=== PATIENT | female | born 1955 | race African-American/Black ===

== ENCOUNTER 2017-03-20 05:09 | Emergency (ER) | payer MEDICARE, MEDICAID ==
[~2017-03-20] VITALS: Ht 154.9 cm; Wt 60.0 kg
[2017-03-20 05:12] VITALS: BP 120/71; PULSE 100; RESP 16; O2SAT 95
[2017-03-20] MEDS ORDERED: VALP250C PO (05:21)
--- NOTE | 2017-03-20 06:10 | PD ---
HPI . Esophageal foreign body sensation Chief Complaint: Foreign Body Time Seen by Provider: 05:39 Travel History International Travel<30 days: No Contact w/Intl Traveler<30days: No Traveled to known affect area: No History of Present Illness HPI This is a 61-year-old apparently mentally handicapped patient who is brought in by her mother with the chief complaint of a foreign body sensation in her throat. The mother reports that the patient has been complaining with this for the last 2-3 days. Mother reports that she is not eating or drinking very well. The mother reports that the patient has started screaming during the wee hours of the morning complaining with the foreign body sensation in her throat. The patient was subsequently brought here for further evaluation and treatment. The patient and her mother are both extremely poor historians. Unfortunately, the patient has never been seen here before so old records are not helpful. [facility] Past Medical History Developmental Delay: Yes Seizures: Yes Past Surgical History Other Surgery: Yes (TRACH, HERNIA X 5) Social History Alcohol Use: No Tobacco Use: No Substance Use: No Allergies-Medications (Allergen,Severity, Reaction): Coded Allergies: Sulfa (Sulfonamide Antibiotics) (Verified Allergy, Unknown, 03/20/17) Reported Meds & Prescriptions Reported Meds & Active Scripts Active Reported Valproic Acid 250 Mg Cap 250 Mg PO HS Review of Systems Except as stated in HPI: all other systems reviewed are Neg General / Constitutional: No: Fever, Chills HENT: Positive: Sore Throat Gastrointestinal: Positive: Loss of Appetite, No: Nausea, Vomiting, Diarrhea, Abdominal Pain Physical Exam Narrative GENERAL: This is a bald 61-year-old woman who is handling her own secretions and he does not appear to be in any acute distress. SKIN: Warm and dry. HEAD: Atraumatic. Normocephalic. EYES: Pupils equal and round. ENT: No nasal bleeding or discharge. Mucous membranes pink and moist. Macroglossia. No visible foreign body. NECK: Trachea midline. No palpable foreign body. She has a tracheostomy scar. CARDIOVASCULAR: Regular rate and rhythm. Heart sounds normal. RESPIRATORY: No accessory muscle use. Lungs are clear with good air movement throughout. GASTROINTESTINAL: Abdomen soft, non-tender, nondistended. MUSCULOSKELETAL: No obvious deformities. No edema. NEUROLOGICAL: Awake and alert. No obvious cranial nerve deficits. Motor grossly within normal limits. PSYCHIATRIC: Unable to assess. Data Data Last Documented VS Vital Signs Date Time Temp Pulse Resp B/P Pulse Ox O2 Delivery O2 Flow Rate FiO2 03/20/17 05:12 100 16 120/71 95 Room Air Orders Complete Blood Count With Diff (03/20/17 05:39) Basic Metabolic Panel (Bmp) (03/20/17 05:39) Urinalysis - C+S If Indicated (03/20/17 05:39) Soft Tissue Neck (03/20/17 ) Labs Laboratory Tests Test 03/20/17 03/20/17 06:30 07:55 White Blood Count 4.3 TH/MM3 Red Blood Count 3.53 MIL/MM3 Hemoglobin 11.1 GM/DL Hematocrit 33.2 % Mean Corpuscular Volume 94.1 FL Mean Corpuscular Hemoglobin 31.3 PG Mean Corpuscular Hemoglobin 33.3 % Concent Red Cell Distribution Width 14.5 % Platelet Count 271 TH/MM3 Mean Platelet Volume 7.3 FL Neutrophils (%) (Auto) 34.3 % Lymphocytes (%) (Auto) 47.3 % Monocytes (%) (Auto) 15.3 % Eosinophils (%) (Auto) 2.3 % Basophils (%) (Auto) 0.8 % Neutrophils # (Auto) 1.5 TH/MM3 Lymphocytes # (Auto) 2.0 TH/MM3 Monocytes # (Auto) 0.7 TH/MM3 Eosinophils # (Auto) 0.1 TH/MM3 Basophils # (Auto) 0.0 TH/MM3 CBC Comment DIFF FINAL Differential Comment Sodium Level 140 MEQ/L Potassium Level 4.4 MEQ/L Chloride Level 105 MEQ/L Carbon Dioxide Level 29.5 MEQ/L Anion Gap 6 MEQ/L Blood Urea Nitrogen 14 MG/DL Creatinine 1.01 MG/DL Estimat Glomerular Filtration 68 ML/MIN Rate Random Glucose 93 MG/DL Calcium Level 9.0 MG/DL Urine Color LIGHT-YELLOW Urine Turbidity CLEAR Urine pH 7.5 Urine Specific [place] 1.005 Urine Protein NEG mg/dL Urine Glucose (UA) NEG mg/dL Urine Ketones NEG mg/dL Urine Occult Blood NEG Urine Nitrite NEG Urine Bilirubin NEG Urine Urobilinogen LESS THAN 2.0 MG/DL Urine Leukocyte Esterase NEG Urine RBC LESS THAN 1 /hpf Urine WBC 2 /hpf Urine Squamous Epithelial 1 /hpf Cells Urine Bacteria OCC /hpf Microscopic Urinalysis Comment CULT NOT INDICATED MDM Medical Decision Making Medical Screen Exam Complete: Yes Emergency Medical Condition: Yes Differential Diagnosis My differential diagnosis of esophageal foreign body includes but is not limited to food bolus, esophageal stricture, foreign body sensation, retropharyngeal abscess Narrative Course This patient presents with the chief complaint of a foreign body sensation in her throat. The first thing that we did was give her a glass of water. She drank a whole glass of water in just a few seconds and did not regurgitate the water. Soft tissue x-ray of the neck>>No radiopaque foreign body identified. Laboratory Tests Test 03/20/17 03/20/17 06:30 07:55 White Blood Count 4.3 TH/MM3 Red Blood Count 3.53 MIL/MM3 Hemoglobin 11.1 GM/DL Hematocrit 33.2 % Mean Corpuscular Volume 94.1 FL Mean Corpuscular Hemoglobin 31.3 PG Mean Corpuscular Hemoglobin 33.3 % Concent Red Cell Distribution Width 14.5 % Platelet Count 271 TH/MM3 Mean Platelet Volume 7.3 FL Neutrophils (%) (Auto) 34.3 % Lymphocytes (%) (Auto) 47.3 % Monocytes (%) (Auto) 15.3 % Eosinophils (%) (Auto) 2.3 % Basophils (%) (Auto) 0.8 % Neutrophils # (Auto) 1.5 TH/MM3 Lymphocytes # (Auto) 2.0 TH/MM3 Monocytes # (Auto) 0.7 TH/MM3 Eosinophils # (Auto) 0.1 TH/MM3 Basophils # (Auto) 0.0 TH/MM3 CBC Comment DIFF FINAL Differential Comment Sodium Level 140 MEQ/L Potassium Level 4.4 MEQ/L Chloride Level 105 MEQ/L Carbon Dioxide Level 29.5 MEQ/L Anion Gap 6 MEQ/L Blood Urea Nitrogen 14 MG/DL Creatinine 1.01 MG/DL Estimat Glomerular Filtration 68 ML/MIN Rate Random Glucose 93 MG/DL Calcium Level 9.0 MG/DL Urine Color LIGHT-YELLOW Urine Turbidity CLEAR Urine pH 7.5 Urine Specific [place] 1.005 Urine Protein NEG mg/dL Urine Glucose (UA) NEG mg/dL Urine Ketones NEG mg/dL Urine Occult Blood NEG Urine Nitrite NEG Urine Bilirubin NEG Urine Urobilinogen LESS THAN 2.0 MG/DL Urine Leukocyte Esterase NEG Urine RBC LESS THAN 1 /hpf Urine WBC 2 /hpf Urine Squamous Epithelial 1 /hpf Cells Urine Bacteria OCC /hpf Microscopic Urinalysis Comment CULT NOT INDICATED Diagnosis Primary Impression: Sensation of foreign body in esophagus Disposition: 01 DISCHARGE HOME Condition: Stable Kianna Gamez MD Mar 20, 2017 06:10
--- NOTE | 2017-03-20 06:31 | RADRPT ---
EXAM DATE/TIME: 03/20/2017 06:02 [place] COMPARISON: No previous studies available for comparison. INDICATIONS : Possible two big fruit seeds foreign bodies. MEDICAL HISTORY : None. SURGICAL HISTORY : None. ENCOUNTER: Initial ACUITY: 1 day PAIN SCORE: 0/10 LOCATION: neck FINDINGS: Two view examination of the soft tissues of the neck demonstrates the hypopharyngeal airway to have a grossly normal configuration. The trachea is midline. No radiopaque foreign bodies are seen. CONCLUSION: 1. No radiopaque foreign body identified. Matthias Walters MD on March 20, 2017 at 6:26 Board Certified Radiologist. This report was verified electronically.
[2017-03-20 06:54] LABS: BICARBONATE 29.5 MEQ/L (21.0-32.0); POTASSIUM 4.4 MEQ/L (3.5-5.1)
[2017-03-20 07:09] LABS: AUTOMATED NEUTROPHIL # 1.5 TH/MM3 (1.8-7.7); BASOPHIL % 0.8 % (0.0-2.0); EOSINOPHIL # 0.1 TH/MM3 (0-0.4); EOSINOPHIL % 2.3 % (0.0-4.0); HEMATOCRIT 33.2 % (35.0-46.0); HEMO FLAGS DIFF FINAL; LYMPH % 47.3 % (9.0-44.0); MEAN CELL VOLUME 94.1 FL (80.0-100.0); MEAN CORPUSCULAR HEMOGLOBIN 31.3 PG (27.0-34.0); MEAN CORPUSCULAR HGB CONC 33.3 % (32.0-36.0); MONO % 15.3 % (0.0-8.0); NEUT % 34.3 % (16.0-70.0); PLATELET COUNT 271 TH/MM3 (150-450); RED BLOOD COUNT 3.53 MIL/MM3 (4.00-5.30); RED CELL DISTRIBUTION WIDTH 14.5 % (11.6-17.2); WHITE BLOOD COUNT 4.3 TH/MM3 (4.0-11.0)
[2017-03-20 08:08] LABS: BACTERIA, URINE OCC /hpf; BLOOD, URINE NEG (NEG); COMMENT (UR) CULT NOT INDICATED; CULTURE IF INDICATED CULT NOT INDICATED; GLUCOSE,URINE NEG (NEG); KETONE, URINE NEG (NEG); NITRITE,URINE NEG (NEG); PH, URINE 7.5 (5.0-8.5); SQUAMOUS EPITHELIAL CELL URINE 1 /hpf (0-5); URINE COLOR LIGHT-YELLOW (YELLW/STRAW)
== END 2017-03-20 09:21 | disposition home or self-care (01) ==
LOC: NEPC 05:09
DX: R09.89 Other specified symptoms and signs involving the circulatory and respiratory systems (principal); Z86.59 Personal history of other mental and behavioral disorders; Z86.69 Personal history of other diseases of the nervous system and sense organs
CPT/HCPCS: 70360; 80048; 81001; 85025; 99283